=== PATIENT | female | born 1945 | race Caucasian/White ===

== ENCOUNTER → 2016-11-10 | Outpatient (CLI) | payer MEDICARE, BC ==
[~2016-11-10] MED LIST: AROMASIN25 MG PO; BIOTIN PO; EFFEXOR XR150 MG PO; ENBREL25 MG/0.5 SUBQ; ENBREL50 MG/M1 SQ; LANSOPRAZOLE30 M2 PO; LEFLUNOMIDE10 MG PO; LEVOTHYROXINE75 MCG PO; LEVOTHYROXINE88 MCG PO; LOSARTAN POTAS100 MG PO; METFORMIN HCL500 M1 PO; PERCOCET5/325 PO; PRAVASTATIN SOD40 MG PO; XARELTO10 MG PO
--- NOTE | ~2016-11-10 | EKG ---
PATIENT: SHASHANK EUCEDA UNIT #: [id number] Ventricular Rate: 110 BPM Atrial Rate: 110 BPM P-R Interval: 146 ms QRS Duration: 70 ms Q-T Interval: 332 ms QTC Calculation(Bezet): 449 ms P [place]: 43 degrees Calculated R [place]: 15 degrees Calculated T [place]: 56 degrees Diagnosis Line: Sinus tachycardia Diagnosis Line: Possible Left atrial enlargement Diagnosis Line: Borderline ECG Diagnosis Line: No previous ECGs available Diagnosis Line: Confirmed by YASMIN MICHELLE MD ([id number]) on Diagnosis Line: 11/11/2016 2:23:08 PM INTERPRETING MD: VIVIANA ESPINAL
[2016-11-10 14:16] LABS: HEMATOCRIT 38.6 % (35.0-45.0); HEMOGLOBIN 12.6 gm/dL (12.0-16.0); MEAN CELL VOLUME 96.4 FL (83-96); MEAN CORPUSCULAR HEMOGLOBIN 31.3 PG (28-34); MEAN CORPUSCULAR HGB CONC 32.5 g/dL (30-36); MEAN PLATELET VOLUME 8.2 FL (6.5-11.5); RED BLOOD COUNT 4.01 X10e (3.90-5.30); RED CELL DISTRIBUTION WIDTH 13.8 % (11.0-15.5); WHITE BLOOD COUNT 3.6 X10e3 (4.0-10.5)
[2016-11-10 14:47] LABS: BLOOD UREA NITROGEN 15 mg/dL (9-23); BUN/CREATININE RATIO 18.75; CALCIUM SERUM 9.2 mg/dL (8.4-10.2); CARBON DIOXIDE 26 mmol/L (22-31); CHLORIDE 103 mmol/L (100-111); CREATININE SERUM 0.8 mg/dL (0.6-1.4); GLOM FILT RATE Estimated ABOVE60 mL/min (>60); GLUCOSE FASTING 133 mg/dL (70-110); POTASSIUM 4.4 mmol/L (3.5-5.1); SODIUM 136 mmol/L (135-145)
[2016-11-10 15:07] LABS: URINE APPEARANCE CLEAR; URINE BILIRUBIN NEG (NEG); URINE BLOOD NEG (NEG); URINE COLOR YELLOW; URINE GLUCOSE NEG (NEG); URINE KETONE NEG (NEG); URINE LEUKOCYTE ESTERASE TRACE (NEG); URINE NITRATE NEG (NEG); URINE PH 5.5 (5-8); URINE PROTEIN NEG (NEG); URINE SPECIFIC GRAVITY 1.022 (1.003-1.035); URINE UROBILINOGEN 0.2 MG/DL (NEG)
[2016-11-10 15:09] LABS: U HYALINE CASTS AUWI 0-2 /[LPF]; URBCS1 AUWI 0-2 /[HPF] (0-2); URINE BACTERIA AUWI NEG (NEGATIVE); URINE SQUAMOUS EPITHELIAL CELL FEW /[HPF]
[2016-11-10 15:14] LABS: CULTURE INDICATED? NO
== END | disposition home or self-care (01) ==
LOC: CAMB 12:49
PROVIDERS: Orthopaedic Surgery
DX: Z01.818 Encounter for other preprocedural examination (principal); M21.071 Valgus deformity, not elsewhere classified, right ankle; R00.1 Bradycardia, unspecified
CPT/HCPCS: 36415; 80048; 81003; 85027; 87070; 93005

== ENCOUNTER 2016-11-18 07:38 | Inpatient (IN) | payer MEDICARE, BC ==
--- NOTE | ~2016-11-18 | OR ---
Unit #: [id number] #: [id number] Patient: SHASHANK SHARMA [id number] [address] [address] [id number] I MR#: [id number] NAME: SHASHANK SHARMA ROOM: [facility] Date of Procedure: 11/18/2016 Admission Date: 11/18/2016 Surgeon: James Hernandez M.D. : 1945 Attending Physician: James Hernandze M.D. Primary Care Physician: Martin Sharma M.D. OPERATIVE REPORT PREOPERATIVE DIAGNOSES 1. Right ankle degenerative arthritis. 2. Right fibular malunion. 3. Right syndesmotic instability. 4. Right foot retained hardware. POSTOPERATIVE DIAGNOSES 1. Right ankle degenerative arthritis. 2. Right fibular malunion. 3. Right syndesmotic instability. 4. Right foot retained hardware. PROCEDURES PERFORMED 1. Right total ankle arthroplasty (65629). 2. Right fibular shaft osteotomy and lengthening (10382). 3. Right tibial fibular syndesmotic fusion (24274). 4. Right Cotton procedure-dorsal opening wedge osteotomy medial cuneiform (58968). 5. Right foot hardware removal (16417). ASSISTANTS Theron and Paul. ANESTHESIA Popliteal saphenous block and general. INDICATIONS FOR SURGERY The patient is a 71-year-old female with stage 4 posterior tibial tendon dysfunction, who has undergone previous triple arthrodesis, which required revision 6 months ago. She now is to undergo ankle replacement. She also has a short fibula due to fibular malunion as well as syndesmotic instability. DESCRIPTION OF PROCEDURE The patient was taken to the operating room. After popliteal saphenous block, she was placed in supine position. General anesthetic was induced. The right ankle was identified as the correct operative extremity during the time-out procedure. The IV antibiotic protocol was followed. The right leg was then prepped and draped in usual sterile fashion. The leg was exsanguinated and the thigh tourniquet inflated to 300 mmHg. Under C-arm fluoroscopic control, a stab incision was made in the posterior heel and the previously placed screw fixating the subtalar joint was identified Unit #: [id number] #: [id number] Patient: SHASHANK SHARMA with a guide pin and then removed with a cannulated screwdriver. In a similar fashion, the screw fixating the talonavicular joint was identified with a pin. A small stab incision was made and the screw was removed. Finally, the calcaneocuboid fixation screw was identified and the pin was placed into the center of this screw under C-arm fluoroscopic control. A small stab incision was made and the screw was removed with screwdriver. A 12 cm anterior longitudinal incision was made over the ankle joint. Subcutaneous tissue was divided. The superficial peroneal nerve was identified and preserved. The extensor retinaculum was opened and the interval between the extensor hallucis longus and anterior tibial tendons was entered. The neurovascular bundle was retracted laterally. The joint was opened and the joint was exposed with subperiosteal dissection. The Anabelle Talaris total ankle replacement system was used for definitive ankle replacement. The tibial alignment guide was pinned into the tibial tuberosity and then into the anterior distal tibia aligning the guide germán with the tibial shaft. Rotation was set. The tibia was sized at a size 1. The talus was sized at a size 1. An 8 mm resection was set and the #1 tibial cutting guide was applied. The three drill holes were placed medially and laterally in the talus and then the tibial cut was made. The anterior half of the cut tibial bone was removed in a piecemeal fashion. The talar pin setting guide was then used to put a pin in the talus. Pin position was checked with C-arm fluoroscopy. The posterior talar cutting guide was then applied and four pins were placed into the posterior talus. Ribbon retractors were placed and the posterior talar cut was made over the pins. The pins were removed and the anterior talar cutting guide was applied. The anterior talar neck was milled. Finally, the lateral talar cutting guide was applied and pinned into place. The Marques saw was used and the lateral talar cut was made. #1 talar trial fit appropriately. A #1 tibial trial with 10 mm insert fit appropriately. The three drill holes were placed in the distal tibia and then connected with the chisel. The rasp was then utilized. The final #1 talar component was impacted into place. A 10 mm polyethylene insert was fixed to the tibial implant and then the tibial implant was impacted into place. Excellent positioning was confirmed. A lateral longitudinal incision was then made over the distal fibula. The distal syndesmosis was exposed subperiosteally and the syndesmosis was debrided and then feathered with the power osteotome. The cancellous bone taken from the pieces of removed tibia was then placed into the fusion site. The fibula was then osteotomized through the old fracture site. It was lengthened 10 mm. The PagerDuty 10 mm wide tricortical allograft bone wedge was impacted into the fibular osteotomy site. A plate was applied laterally and the plate was fixated to the fibula with multiple 4-0 cancellous and 3.5 mm diameter cortical screws. The syndesmosis was then compressed and two 4.0 cortical screws were placed across the syndesmosis just above the level of the tibial component to achieve compression. Forefoot then rested in about 10 degrees of varus, therefore cotton procedure was required. The dorsal aspect of the medial cuneiform was exposed subperiosteally. A guide pin was placed in a center-center position and position was confirmed with C-arm fluoroscopy. The microsagittal saw was used to cut the medial cuneiform from dorsal to plantar leaving the plantar cortex intact. A smooth lamina exerciser was used to spread open the dorsal aspect of the medial cuneiform and an 8 mm wide tricortical allograft bone wedge was impacted into place and then Unit #: [id number] #: [id number] Patient: SHASHANK SHARMA fixated with a 4.0 mm diameter OrthoHelix screw placed from distal dorsal to plantar proximal. Excellent fixation was achieved. It should also be noted that the hardware placed in the fibula was from PagerDuty. A dilute Betadine wash for 3 minutes was then applied to the ankle joint and then lavaged with saline. The tibial keel was bone grafted with autogenous tibial bone and this was impacted into the keel hole. Tourniquet was released with a total tourniquet time of 2 hours 10 minutes. Bleeding was controlled with electrocautery. The ankle joint capsule was closed with 2-0 Vicryl, the extensor retinaculum was closed with 2-0 Vicryl, subcutaneous tissue was closed with 3-0 Vicryl, skin was closed with 3-0 nylon horizontal mattress sutures. Xeroform gauze, dressing, sponges, Webril, and a posterior fiberglass splint were applied. The patient was then transported to the recovery room in stable condition. ESTIMATED BLOOD LOSS 200 mL. COMPLICATIONS None. SPECIMENS None. TOURNIQUET TIME 2 hours 10 minutes. Dictated by.Susan Viera/yuki TD: 11/19/2016 03:38 JOB #: [id number] OPERATIVE REPORT Page 1 of 1 X Flor Hernandez MD X PROCEDURE OPERATIVE NOTE
--- NOTE | ~2016-11-18 | HP ---
Unit #: [id number] #: [id number] Patient: SHASHANK EUCEDA [id number] [address] [place], [place] [address] [id number] MR#: [id number] NAME: SHASHANK EUCEDA ROOM: Age: Sex: F Admission Date: 11/18/2016 : 1945 Attending Physician: James Hernandez M.D. Primary Care Physician: Martin Euceda M.D. HISTORY AND PHYSICAL CHIEF COMPLAINT Right ankle pain. HISTORY OF PRESENT ILLNESS The patient is a 71-year-old female who underwent right foot revision triple arthrodesis 5 months ago. She is now admitted for right ankle joint replacement, lengthening fibular osteotomy, syndesmotic fusion and Cotton procedure with removal of 2 screws. PAST MEDICAL HISTORY Remarkable for type 2 diabetes, hypertension, asthma, breast cancer, rheumatoid arthritis, hypothyroidism. PAST SURGICAL HISTORY Right foot triple arthrodesis, revision right foot triple arthrodesis, knee replacement, mastectomy. HOME MEDICATIONS Biotin, Enbrel, exemestane, leflunomide, Thyroid, losartan, metformin, pravastatin, venlafaxine. ALLERGIES Morphine. SOCIAL HISTORY The patient is a nonsmoker. She denies drug use. She drinks alcohol socially - Less than 7 drinks a week. FAMILY HISTORY Diabetes, stroke, arthritis, alcohol abuse. PHYSICAL EXAMINATION HEIGHT/WEIGHT: Height 5'6", weight 228 pounds, BMI 36.8. GENERAL: This is an obese female in no acute distress. HEENT: Pharynx is clear. NECK: The neck is supple without masses. HEART: Heart exam reveals a regular sinus rhythm without murmurs or gallops. LUNGS: The lungs are clear. ABDOMEN: The abdomen is soft and nontender without masses or organomegaly. EXTREMITIES: Evaluation of the right foot demonstrates well-healed dorsomedial and dorsolateral midfoot incisions. There is residual valgus of the heel measuring about 10 degrees. Right ankle dorsiflexion is 0 Unit #: [id number] #: [id number] Patient: SHASHANK EUCEDA degrees, plantarflexion is 30 degrees, subtalar motion absent. Pulses are intact. Sensation is normal. Motor exam is normal. DIAGNOSTIC STUDIES IMAGING: Standing x-rays of the right foot show satisfactory alignment of the subtalar joint and Chopart joint, complete fusions of the subtalar joint and calcaneocuboid joint are documented. Talonavicular joint fusion is ongoing. Standing x-rays of the right ankle demonstrate syndesmotic nonunion and disruption, previously healed fibular stress fracture. There is valgus orientation of the distal tibia and contained ankle valgus measuring about 10 degrees. There are residual screws crossing the talonavicular joint, subtalar joint and calcaneocuboid joint. PLAN The patient will undergo removal of hardware, followed by syndesmotic fusion, lengthening of the distal fibula shaft through her osteotomy fracture site. We will utilize allograft bone for lengthening of the fibula. The syndesmosis will also be fused concurrently. Anabelle Talaris Total Ankle replacement will then be performed. Possible Cotton procedure will be required. This procedure was described, along with diagram. The risks of surgery were discussed, including bleeding, infection, nerve damage, the need for further surgery in the future, prolonged recovery time, deep vein thrombosis, pulmonary embolism, anesthetic complications, nonunion, malunion, need for multiple revisions of the ankle replacement in the future. Dictated by Susan Dickinson/darrel TD: 11/17/2016 14:10 JOB #: [id number] HISTORY AND PHYSICAL Page 1 of 1 X Flor Hernandez MD HISTORY AND PHYSICAL
--- NOTE | ~2016-11-18 | DS ---
Unit #: [id number] #: [id number] Patient: SHASHANK SHARMA [id number] [address] [address] [id number] I MR#: [id number] NAME: SHASHANK SHARMA ROOM: 449 Age: 71 Sex: F Admission Date: 11/18/2016 : 1945 Discharge Date: 11/20/2016 Attending Physician: James Hernandez M.D. Primary Care Physician: Martin Sharma M.D. DISCHARGE SUMMARY DATE OF PROCEDURE 11/18/2016. PRIMARY ADMISSION DIAGNOSES/PREOPERATIVE DIAGNOSES 1. Right ankle degenerative arthritis. 2. Right fibular malunion. 3. Right syndesmotic instability. 4. Right foot retained hardware. POSTOPERATIVE DIAGNOSES/DISCHARGE DIAGNOSES 1. Right ankle degenerative arthritis. 2. Right fibular malunion. 3. Right syndesmotic instability. 4. Right foot retained hardware. PROCEDURES 1. On 11/18/2016, the patient had a right total ankle arthroplasty. 2. Right fibular shaft osteotomy and lengthening. 3. Right tibiofibular syndesmotic fusion. 4. Right Cotton procedure, dorsal opening wedge osteotomy of the medial cuneiform. 5. Removal of right foot hardware. REASON FOR ADMISSION Postoperative pain control. HOSPITAL COURSE The patient is a 71-year-old female who has stage IV posterior tibial tendon dysfunction, who underwent previous triple arthrodesis, which required revision about 6 months ago. She is now ready to undergo a total ankle replacement. She also has a short fibula due to fibular malunion as well as syndesmotic instability. On 11/18/2016, she was admitted to the hospital. She underwent operations to her right foot and ankle for correction of the mentioned deformities. The patient tolerated the procedure and anesthesia well. The patient was then transferred to the orthopedic [facility] where she was monitored and pain was controlled. On postoperative day #1, the patient was examined. Her vitals were stable and her labs were all within normal limits. The patient worked with physical therapy on postop day #1 and did well, and on postop day #2, the dressings were taken down. All the incision sites were clean, dry, and intact with no evidence of any infection. A new cast was applied to the operative limb. The patient's pain was controlled. Her vitals were stable and her labs were within normal limits and she was ready for Unit #: [id number] #: [id number] Patient: SHASHANK SHARMA discharge on 11/20/2016. The patient was subsequently discharged from the hospital in apparent and satisfactory health. DISCHARGE CONDITION Stable. DISPOSITION Home. FOLLOWUP Follow up in [address] Harris Hernandez for postoperative appointment. DISCHARGE MEDICATIONS Include Percocet 5/325, take 1 to 2 tablets by mouth every 6 hours as needed for pain; Xarelto 10 mg, one tablet by mouth daily for DVT prophylaxis. DIET She can resume a normal diet as tolerated. Dictated by... Marc Miller M.D. for James Hernandez M.D. JOZEF/yuki TD: 11/20/2016 08:01 JOB #: [id number] DISCHARGE SUMMARY Page 1 of 1 X X DISCHARGE SUMMARY
--- NOTE | ~2016-11-18 | CO ---
Unit #: [id number] #: [id number] Patient: SHASHANK SHARMA [id number] [facility] [address] [facility]. [place], [place] [address] [id number] MR#: [id number] NAME: SHASHANK SHARMA ROOM: 449 Age: 71 Sex: F Admission Date: 11/18/2016 : 1945 Attending Physician: James Hernandez M.D. Primary Care Physician: Martin Sharma M.D. Consultation Date: 11/18/2016 CONSULTATION REPORT REASON FOR CONSULTATION Postop diabetes management. HISTORY OF PRESENT ILLNESS The patient is a 71-year-old female with past medical history of hypertension, breast cancer, rheumatoid arthritis, diabetes, hypothyroidism, who was admitted by Dr. Hernandez today for right ankle surgery. The patient underwent right foot revision triple arthrodesis five months ago. She states that she has been doing well since that surgery. She was admitted today for right ankle joint replacement, lengthening fibular osteotomy, syndesmotic fusion and Cotton procedure with removal of two screws. Regarding the patient's chronic medical condition she has diabetes. She takes metformin. She states that her blood sugars have been around 130. She has hypertension and had been taking her medications as prescribed. She also has rheumatoid arthritis and sees Dr. Hodges. She is maintained on Enbrel and leflunomide. PAST MEDICAL HISTORY 1. Admission to [facility] January 15, 2016 for revision of triple arthrodesis. 2. Hypertension. 3. Hyperlipidemia. 4. Diabetes. 5. Breast cancer, status post mastectomy. She did have chemotherapy and radiation. 6. Rheumatoid arthritis, followed by Dr. Hodges, maintained on Enbrel and leflunomide. 7. Hypothyroidism. PAST SURGICAL HISTORY 1. Ankle surgery. 2. Mastectomy. 3. Knee replacement. SOCIAL HISTORY The patient lives with her . There is no tobacco use. She reports occasional alcohol use. She typically walks without assistance. FAMILY HISTORY Family history is notable for her mother having diabetes. ALLERGIES Morphine. Unit #: [id number] #: [id number] Patient: SHASHANK SHARMA HOME MEDICATIONS 1. Lansoprazole 30 mg daily. 2. Losartan 100 mg daily. 3. Metformin 500 mg b.i.d. 4. Pravastatin 40 mg daily. 5. Effexor 150 mg daily. 6. Leflunomide 20 mg daily. 7. Enbrel 25 mg subcu weekly. 8. Biotin 500 mcg daily. 9. Levothyroxine 75 mcg daily. REVIEW OF SYSTEMS A complete review of systems is negative except as indicated in the HPI. The patient states that she has never been told she has sleep apnea. She does snore but states that her sleep is refreshing. She denies any chest pain, no cough or cold symptoms, no bowel or bladder problems. DIAGNOSTIC STUDIES LABORATORY: Accu-Chek is 135. PHYSICAL EXAMINATION VITAL SIGNS: Temperature is 97.6. Blood pressure 131/68. Pulse 120. Respirations 17. Oxygen saturation 96% on room air. Those vitals were in the PACU. GENERAL: The patient is a very pleasant female who is awake and alert, in no acute distress. HEENT: The head is atraumatic. Mucous membranes are moist. NECK: Neck is supple. Trachea is midline. CARDIOVASCULAR: Regular rate and rhythm. LUNGS: Lungs are clear to auscultation bilaterally with no increased work of breathing. ABDOMEN: Abdomen is soft, nontender, with bowel sounds present in all four quadrants. EXTREMITIES: There is an CHARLENE bandage about the right ankle that is clean, dry and intact. There is no pedal edema involving the left ankle. NEUROLOGIC: The patient is awake and alert. She follows commands. PSYCHIATRIC: Mood and affect are normal. The patient is cooperative. SKIN: Skin of examined areas is warm and dry. ASSESSMENT The patient is a 71-year-old female with: 1. Status post right ankle surgery. 2. Hypertension. 3. History of breast cancer, status post mastectomy. 4. Rheumatoid arthritis, followed by Dr. Hodges, maintained on Enbrel and leflunomide. 5. Diabetes. 6. Hypothyroidism. 7. Increased risk of obstructive sleep apnea. 8. Hyperlipidemia. PLAN 1. Regarding diabetes I have ordered a hemoglobin A1C as well as low-dose sliding-scale insulin with Accu-Cheks. 2. Regarding hypothyroidism I have ordered a TSH. 3. Regarding increased risk for obstructive sleep apnea I have ordered the obstructive sleep apnea protocol. Unit #: [id number] #: [id number] Patient: SHASHANK SHARMA Thank you very much for the consultation. We will follow the patient along closely with you. Dictated by... Susan Domingo/dariela TD: 11/18/2016 17:53 JOB #: [id number] CONSULTATION REPORT Page 1 of 1 X Ally Gao MD CONSULTATION REPORT
[~2016-11-18 07:38] MED LIST changes: -EFFEXOR XR150 MG PO; -ENBREL25 MG/0.5 SUBQ; -LANSOPRAZOLE30 M2 PO; -LEFLUNOMIDE10 MG PO; -LEVOTHYROXINE75 MCG PO; -LOSARTAN POTAS100 MG PO; -METFORMIN HCL500 M1 PO; -PERCOCET5/325 PO; -PRAVASTATIN SOD40 MG PO; -XARELTO10 MG PO
[2016-11-18] MEDS ORDERED: METFORMIN HCL500 M1 PO (10:20)
[2016-11-18] MEDS ORDERED: LANSOPRAZOLE30 M2 PO (10:20)
[2016-11-18] MEDS ORDERED: LOSARTAN POTAS100 MG PO (10:20)
[2016-11-18] MEDS ORDERED: PRAVASTATIN SOD40 MG PO (10:21)
[2016-11-18] MEDS ORDERED: EFFEXOR XR150 MG PO (10:21)
[2016-11-18] MEDS ORDERED: LEFLUNOMIDE10 MG PO (10:22)
[2016-11-18] MEDS ORDERED: ENBREL25 MG/0.5 SUBQ (13:49)
[2016-11-18] MEDS ORDERED: BIOTIN PO (13:50)
[2016-11-18] MEDS ORDERED: LEVOTHYROXINE75 MCG PO (13:51)
[2016-11-18 19:23] LABS: HEMATOCRIT 29.3 % (35.0-45.0); HEMOGLOBIN 9.6 gm/dL (12.0-16.0)
[2016-11-19 03:22] LABS: BASOPHIL% 0.3 % (0-2.5); EOSINOPHIL# 0.1 X10e3 (0-0.7); HEMATOCRIT 29.2 % (35.0-45.0); HEMOGLOBIN 9.6 gm/dL (12.0-16.0); LYMPHOCYTE# 1.4 X10e3 (1.0-3.5); LYMPHOCYTE% 20.8 % (17.0-45.0); MEAN CELL VOLUME 97.4 FL (83-96); MEAN CORPUSCULAR HEMOGLOBIN 31.9 PG (28-34); MEAN CORPUSCULAR HGB CONC 32.8 g/dL (30-36); MEAN PLATELET VOLUME 8.4 FL (6.5-11.5); MONOCYTE# 1.2 X10e3 (0-1.0); MONOCYTE% 18.1 % (3.0-12.0); NEUTROPHIL# 3.9 X10e3 (1.5-7.1); NEUTROPHIL% 58.8 % (40-75); PLATELET COUNT 168 X10e3 (140-420); RED BLOOD COUNT 2.99 X10e (3.90-5.30); RED CELL DISTRIBUTION WIDTH 13.9 % (11.0-15.5); WHITE BLOOD COUNT 6.7 X10e3 (4.0-10.5)
[2016-11-19 03:23] LABS: DIFF IND NO
[2016-11-19 03:49] LABS: ALBUMIN SERUM 3.6 g/dL (3.5-5.0); BILIRUBIN,TOTAL 0.6 mg/dL (0.2-2.0); BUN/CREATININE RATIO 17.85; CALCIUM SERUM 7.6 mg/dL (8.4-10.2); CREATININE SERUM 1.4 mg/dL (0.6-1.4); GLOM FILT RATE Estimated 37.4 mL/min (>60); POTASSIUM 4.7 mmol/L (3.5-5.1); PROTEIN TOTAL SERUM 5.7 g/dL (6.0-8.3)
[2016-11-20 04:14] LABS: HEMATOCRIT 23.4 % (35.0-45.0); HEMOGLOBIN 7.7 gm/dL (12.0-16.0)
[2016-11-20] MEDS ORDERED: XARELTO10 MG PO (10:43)
[2016-11-20] MEDS ORDERED: PERCOCET5/325 PO (10:44)
== END 2016-11-20 11:00 | disposition home or self-care (01) | DRG 493 ==
LOC: CSUR 07:38 → C4B 14:01
PROVIDERS: Family Medicine; Orthopaedic Surgery
PROC: 0SPF04Z Removal of Internal Fixation Device from Right Ankle Joint, Open Approach (ICD-10-PCS; 2016-11-18)
PROC: 0QH Lower Bones, Insertion (ICD-10-PCS; 2016-11-18)
PROC: 0SUF0JZ Supplement Right Ankle Joint with Synthetic Substitute, Open Approach (ICD-10-PCS; principal; 2016-11-18 10:00)
PROC: 0SGF04Z Fusion of Right Ankle Joint with Internal Fixation Device, Open Approach (ICD-10-PCS; 2016-11-18 10:00)
PROC: 0QBG0ZZ Excision of Right Tibia, Open Approach (ICD-10-PCS; 2016-11-18 10:00)
DX: M19.071 Primary osteoarthritis, right ankle and foot (principal); M96.0 Pseudarthrosis after fusion or arthrodesis; E11.9 Type 2 diabetes mellitus without complications; M06.9 Rheumatoid arthritis, unspecified; I10 Essential (primary) hypertension; Y83.8 Other surgical procedures as the cause of abnormal reaction of the patient, or of later complication, without mention of misadventure at the time of the procedure; Y79.8 Miscellaneous orthopedic devices associated with adverse incidents, not elsewhere classified; Z85.3 Personal history of malignant neoplasm of breast; E78.5 Hyperlipidemia, unspecified; Z79.84 Long term (current) use of oral hypoglycemic drugs; E03.9 Hypothyroidism, unspecified; Z96.659 Presence of unspecified artificial knee joint; N39.3 Stress incontinence (female) (male)
CPT/HCPCS: 80053; 82947; 83036; 84443; 85014; 85018; 85025; 94762; 97161; 97530; C1713; C1776; G8978-GP; G8979-GP; G8980-GP; J0690; J2250; J2370; J2405; J2765; J3010